=== PATIENT | male | born 1970 | race Caucasian/White ===

== ENCOUNTER → 2018-04-07 11:38 | Outpatient (CLI) | payer OTHER, SELFPAY ==
--- NOTE | 2018-04-07 11:42 | RAD_ITS ---
STUDY: X-RAY - PELVIS AND BILATERAL HIPS REASON FOR EXAM: Male, 47 years old. 2 week history of pain. No known injury. TECHNIQUE: Radiological exam, hip, bilateral, with pelvis when performed; 3-4 views COMPARISON: None. FINDINGS: There is a non-specific bowel gas pattern. Normal visualized soft tissue structures. Normal bilateral iliac wings, sacroiliac joints and visualized sacrum. Normal bilateral superior and inferior pubic rami. Normal pubic symphysis. Normal bilateral ischial tuberosities. Normal visualized right femoral head. Normal right acetabulum. Normal right hip joint. Normal visualized left femoral head. Normal left acetabulum. Normal left hip joint. RAD/Hips B/L min 2 views w/ Pelvis IMPRESSION: Normal x-ray examination of the pelvis and bilateral hips. Electronically Signed: Uriel Sung MD at 15:49 EDT Tel [phone], Service support ,
== END ==
PROVIDERS: Family Provider Family Medicine; PCP Family Medicine; Visit Provider Family Medicine
DX: M25.552 Pain in left hip (principal)
CPT/HCPCS: 73521

== ENCOUNTER → 2018-05-19 09:18 | Outpatient (CLI) | payer OTHER, SELFPAY | PROVIDERS: Family Provider Family Medicine; PCP Family Medicine | DX: M54.16 Radiculopathy, lumbar region (principal) | CPT/HCPCS: 72148 ==

== ENCOUNTER → 2019-03-31 | Outpatient (CLI) | payer OTHER, SELFPAY ==
[2019-03-31 17:30] LABS: Absolute Lymphocyte Count 2.09 X10^3/ul (0.83-4.51); Absolute Neutrophil Count 4.3 X10^3/uL (2.0-7.7); Basophil# 0.04 X10^3/uL; Basophil% 0.6 % (0-1); Eosinophil# 0.18 X10^3/uL; Eosinophils% 2.5 % (0-5); Hematocrit 44.5 % (40-54); Hemoglobin 15.5 g/dl (13.0-16.5); Lymphocyte # 2.09 X10^3/ul (4.0); Lymphocyte % 29.6 % (19-41); Mean Corp Hgb Conc 34.8 g/gl (32-36); Mean Corpuscular Hgb 29.2 pg (27.0-32.0); Mean Platelet Vol. 10.3 fl (6.2-12.0); Monocyte# 0.41 X10^3/uL; Monocyte% 5.8 % (0-10); Neutrophil # 4.33 X10^3/uL (2.7-7.7); Neutrophil % 61.4 % (47-70); Platelet Count 234 K/mm3 (150-450); RBC Distribution Width CV 12.8 % (11.6-14.6); RBC Distribution Width SD 39.2 fl (35.1-43.9); White Blood Count 7.1 K/mm3 (4.4-11.0)
[2019-03-31 17:35] LABS: POSITIVE COUNT NO; POSITIVE DIFFERENTIAL NO; POSITIVE MORPHOLOGY NO
[2019-03-31 18:17] LABS: ALB/GLOB Ratio 1.1 RATIO (0.9-2.4); AST(SGOT) 25 U/L (15-37); Alanine Aminotransfer ALT/SGPT 45 U/L (16-61); Albumin, Serum 4.1 g/dL (3.2-5.0); Alkaline Phosphatase 105 U/L (45-117); Anion Gap 12 (5-15); BUN 12 mg/dL (7-18); BUN/Creat Ratio 14.7 RATIO (10-20); Calcium,Total 8.8 mg/dL (8.5-10.1); Chloride 106 mmol/L (98-107); Cholesterol 177 mg/dL (200); Creatinine, Serum 0.82 mg/dL (0.70-1.30); EST Glomerular Filtration Rate 107 mL/min (>60); Est Glom Filt Rate - Afr Amer 129 mL/min (>60); Globulin 3.6 g/dL (2.2-4.2); Glucose 75 mg/dL (74-106); High Density Lipoprotein 35 mg/dL; Potassium 3.9 mmol/L (3.5-5.1); Protein, Total 7.7 g/dL (6.4-8.2); Sodium Level 143 mmol/L (136-145); Thyroid Stim Hormone (TSH) 1.94 uIU/mL (0.358-3.74); Triglycerides 322 mg/dL; Very Low Density Lipoprotein 64 mg/dL (5-40)
== END | disposition home or self-care (01) ==
LOC: MFPLAB 15:53
PROVIDERS: Family Provider Family Medicine; PCP Family Medicine; Referring Provider Family Medicine; Visit Provider Family Medicine
DX: E11.9 Type 2 diabetes mellitus without complications (principal); E66.9 Obesity, unspecified; E78.5 Hyperlipidemia, unspecified
CPT/HCPCS: 36415; 80053; 80061; 83036; 84443; 85025

== ENCOUNTER 2019-08-14 07:21 | Day surgery (SDC) | payer OTHER, SELFPAY ==
--- NOTE | 2019-07-13 03:08 | HP_ITS ---
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 Bulk System Required: No Is patient in pain?: No Allergies No Known Allergies Allergy (Unverified 07/13/19 14:41) Medications cholecalciferol (vitamin D3) 1,000 unit capsule 1,000 unit PO DAILY 07/13/19 [History Confirmed 07/13/19] ropinirole 1 mg tablet 1 mg PO QHS 07/13/19 [History Confirmed 07/13/19] rosuvastatin 10 mg tablet 10 mg PO DAILY 07/13/19 [History Confirmed 07/13/19] PFSH Medical History (Updated 07/13/19 @ 15:06 by Clifford Collins MD) Umbilical hernia, incarcerated (Acute) Screening for intestinal cancer (Acute) Back problem (Acute) Sleep apnea (Acute) Surgical History (Updated 07/13/19 @ 14:38 by Pepper Ma) Hx of hemorrhoidectomy (Acute) Hx of colonoscopy (Acute) Hx of arthroscopic knee surgery (Acute) Family History (Updated 07/13/19 @ 14:38 by Pepper Ma) Aunt Cancer brain cancer Social History (Updated 07/13/19 @ 15:18 by Clifford Collins MD) Smoking Status: Current every day smoker second hand exposure: Yes alcohol intake: never substance use type: marijuana caffeine: Yes what type of physical activity do you participate in: none frequency: does not exercise seatbelt use: always HPI HPI HPI: PAU GORE, is a 49 M who presents to the office today for HPI HPI Surgical H&P: Yes HPI: PAU GORE, is a 49 M who presents to the office today for surgical consultation regarding 2 particular findings. One is a 3-year history of a umbilical hernia. The other is age of 49 he has need for screening colonoscopy. 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 He does not do excessive lifting or straining. He has not had any abdominal surgery. Been no previous incisions at the umbilicus. He does not recall any specific trauma or injury. Over the past 3 years however he has noticed a nonreducible umbilical hernia. Infrequently as it tender. Never been erythematous. The patient does not smoke cigarettes but he does routinely smoke cigars. He states that it is very unlikely that he will be able to cease. He is previously had colonoscopy January 2011. At that time he then had a hemorrhoidectomy per . Pathology was consistent with benign hemorrhoidal tissue. At age 49 now he is referred for screening colonoscopy. He has not noticed any bright red blood per rectum or melena. As noted there is no family history of colon cancer. The patient is referred by Dr Vj Brown and a written compromise surgical consult recommendations will return to him regarding both the screening colonoscopy and umbilical hernia ROS General General: No weight change, appetite, fatigue, colon cancer, breast cancer or weakness HEENT HEENT: No difficulty swallowing, eye injury, eye surgery, swollen glands or hoarseness Endo Endocrine: No thyroid disease, diabetes mellitus, thyroid cancer, Hair loss, heat intolerance or cold intolerance Skin Skin: No rash or changing moles Musc Musculoskeletal: Yes back problems; no arthritis, rheumatoid arthritis, gout or joint pain Cardio Cardiovascular: No murmur, pacemaker, heart disease, atrial fibrillation, high blood pressure, heart attack, heart stent, palpitations, shortness of breat with exertion or chest pain Psych Psychiatric: No depression, anxiety or hearing voices Resp Respiratory: No shortness of breath, No sleep apnea, No cough, No COPD, No asthma, No emphysema, No wheezing Gastro Gastrointestinal: No abdominal pain, No nausea or vomiting, No diarrhea, No constipation, No blood in stool, No acid reflux, No hemorrhoids, No ulcers, No gallbladder problem, No black,tarry stools Mejia Hematologic: No blood thinners, No blood disorders, No bleeding, No anemia, No blood clots Neuro Neurologic: No system reviewed and no additional complaints, except as docu, No as per HPI, No abnormal walking, No abnormal hearing, No abnormal movements, No abnormal speech, No behavioral changes, No burning sensations, No confusion, No seizure-like activity, No unsteadiness, No dizziness, No localized weakness, No frequent falls, No headache(s), No lack of coordination, No loss of vision, No memory loss, No numbness, No other visual disturbances, No radiating pain, No restless legs, No sensory deficit, No fainting, No tingling, No tremor(s), No weakness, No other Exam Const General: cooperative, no acute distress Nutritional Appearance: obese Orientation: alert, awake, oriented x3 HENMT Head: normal to inspection Chest Chest palpation & inspection: normal inspection of the chest Resp Effort & Inspection: normal respiratory effort Auscultation: clear to auscultation bilaterally Cardio Rate: regular rate Rhythm: regular rhythm Heart Sounds: no murmurs Other: Carotids 3+ bilaterally no bruits GI Palpation: soft, no hepatosplenomegaly Auscultation: normal bowel sounds Other: Moderate sized umbilical hernia, fibrofatty tissue, only partially reducible, no erythema, notably overweight Skin General: no rashes or lesions noted Neuro General: alert, awake Extrem General: no calf tenderness bilaterally Psych Affect: normal affect Assessment & Plan Problems 1. Screening for intestinal cancer Z12.10 2. Umbilical hernia, incarcerated K42.0 Plan I recommended the patient a screening colonoscopy with possible biopsy or polypectomy as indicated. He is aware of the technique, benefits, risks, alternatives. We will schedule and proceed at his discretion. I do anticipate utilizing monitored anesthesia care. The patient does have an umbilical hernia which is only partially reducible. His body habitus currently is not ideal for repair. He suggests that he is quite unlikely to cease using cigars. I have recommended to him that he consider a 20 to 25 pound weight loss which would put him in a better situation to allow for the umbilical hernia repair. We did briefly discuss the utilization of mesh to assist with the repair. When he stands the vast majority of his abdominal pressure is on that umbilicus. Both the patient and his seem to understand the importance of his assistance and better maximizing himself as a surgical candidate. He does suggest that he thinks it is reasonable for him to attempt a weight loss program. He is to recontact me if the area becomes symptomatic or when he is able to achieve this at goal of weight loss. I very much appreciate the kind opportunity of assisting with his surgical care. CC: Dr Vj Collins M.D., F.A.C.S. Coding Level of Care Code 01750 Diagnoses Screening for intestinal cancer Z12.10 Umbilical hernia, incarcerated K42.0 07/13/19 1519 <Electronically signed by Clifford tellez MD> Date _ Clifford Collins MD
[2019-07-13 14:39] VITALS: BMI 35.2
[2019-08-14] VITALS (7 sets, daily range): BP systolic 110–124; BP diastolic 58–73; PULSE 76–86; RESP 16–18; TEMP 36.4–37.2; O2SAT 93–99; BMI 36.3
--- NOTE | 2019-08-14 05:56 | PCM.HP.BLA ---
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 Required: No Is patient in pain?: No Allergies No Known Allergies Allergy (Unverified 07/13/19 14:41) Medications cholecalciferol (vitamin D3) 1,000 unit capsule 1,000 unit PO DAILY 07/13/19 [History Confirmed 07/13/19] ropinirole 1 mg tablet 1 mg PO QHS 07/13/19 [History Confirmed 07/13/19] rosuvastatin 10 mg tablet 10 mg PO DAILY 07/13/19 [History Confirmed 07/13/19] PFSH Medical History (Updated 07/13/19 @ 15:06 by Clifford Collins MD) Umbilical hernia, incarcerated (Acute) Screening for intestinal cancer (Acute) Back problem (Acute) Sleep apnea (Acute) Surgical History (Updated 07/13/19 @ 14:38 by Pepper Ma) Hx of hemorrhoidectomy (Acute) Hx of colonoscopy (Acute) Hx of arthroscopic knee surgery (Acute) Family History (Updated 07/13/19 @ 14:38 by Pepper Ma) Aunt Cancer brain cancer Social History (Updated 07/13/19 @ 15:18 by Clifford Collins MD) Smoking Status: Current every day smoker second hand exposure: Yes alcohol intake: never substance use type: marijuana caffeine: Yes what type of physical activity do you participate in: none frequency: does not exercise seatbelt use: always HPI HPI HPI: PAU GORE, is a 49 M who presents to the office today for HPI HPI Surgical H&P: Yes HPI: PAU GORE, is a 49 M who presents to the office today for surgical consultation regarding 2 particular findings. One is a 3-year history of a umbilical hernia. The other is age of 49 he has need for screening colonoscopy. 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 He does not do excessive lifting or straining. He has not had any abdominal surgery. Been no previous incisions at the umbilicus. He does not recall any specific trauma or injury. Over the past 3 years however he has noticed a nonreducible umbilical hernia. Infrequently as it tender. Never been erythematous. The patient does not smoke cigarettes but he does routinely smoke cigars. He states that it is very unlikely that he will be able to cease. He is previously had colonoscopy January 2011. At that time he then had a hemorrhoidectomy per . Pathology was consistent with benign hemorrhoidal tissue. At age 49 now he is referred for screening colonoscopy. He has not noticed any bright red blood per rectum or melena. As noted there is no family history of colon cancer. The patient is referred by Dr Vj Brown and a written compromise surgical consult recommendations will return to him regarding both the screening colonoscopy and umbilical hernia ROS General General: No weight change, appetite, fatigue, colon cancer, breast cancer or weakness HEENT HEENT: No difficulty swallowing, eye injury, eye surgery, swollen glands or hoarseness Endo Endocrine: No thyroid disease, diabetes mellitus, thyroid cancer, Hair loss, heat intolerance or cold intolerance Skin Skin: No rash or changing moles Musc Musculoskeletal: Yes back problems; no arthritis, rheumatoid arthritis, gout or joint pain Cardio Cardiovascular: No murmur, pacemaker, heart disease, atrial fibrillation, high blood pressure, heart attack, heart stent, palpitations, shortness of breat with exertion or chest pain Psych Psychiatric: No depression, anxiety or hearing voices Resp Respiratory: No shortness of breath, No sleep apnea, No cough, No COPD, No asthma, No emphysema, No wheezing Gastro Gastrointestinal: No abdominal pain, No nausea or vomiting, No diarrhea, No constipation, No blood in stool, No acid reflux, No hemorrhoids, No ulcers, No gallbladder problem, No black,tarry stools Mejia Hematologic: No blood thinners, No blood disorders, No bleeding, No anemia, No blood clots Neuro Neurologic: No system reviewed and no additional complaints, except as docu, No as per HPI, No abnormal walking, No abnormal hearing, No abnormal movements, No abnormal speech, No behavioral changes, No burning sensations, No confusion, No seizure-like activity, No unsteadiness, No dizziness, No localized weakness, No frequent falls, No headache(s), No lack of coordination, No loss of vision, No memory loss, No numbness, No other visual disturbances, No radiating pain, No restless legs, No sensory deficit, No fainting, No tingling, No tremor(s), No weakness, No other Exam Const General: cooperative, no acute distress Nutritional Appearance: obese Orientation: alert, awake, oriented x3 HENMT Head: normal to inspection Chest Chest palpation & inspection: normal inspection of the chest Resp Effort & Inspection: normal respiratory effort Auscultation: clear to auscultation bilaterally Cardio Rate: regular rate Rhythm: regular rhythm Heart Sounds: no murmurs Other: Carotids 3+ bilaterally no bruits GI Palpation: soft, no hepatosplenomegaly Auscultation: normal bowel sounds Other: Moderate sized umbilical hernia, fibrofatty tissue, only partially reducible, no erythema, notably overweight Skin General: no rashes or lesions noted Neuro General: alert, awake Extrem General: no calf tenderness bilaterally Psych Affect: normal affect Assessment & Plan Problems 1. Screening for intestinal cancer Z12.10 2. Umbilical hernia, incarcerated K42.0 Plan I recommended the patient a screening colonoscopy with possible biopsy or polypectomy as indicated. He is aware of the technique, benefits, risks, alternatives. We will schedule and proceed at his discretion. I do anticipate utilizing monitored anesthesia care. The patient does have an umbilical hernia which is only partially reducible. His body habitus currently is not ideal for repair. He suggests that he is quite unlikely to cease using cigars. I have recommended to him that he consider a 20 to 25 pound weight loss which would put him in a better situation to allow for the umbilical hernia repair. We did briefly discuss the utilization of mesh to assist with the repair. When he stands the vast majority of his abdominal pressure is on that umbilicus. Both the patient and his seem to understand the importance of his assistance and better maximizing himself as a surgical candidate. He does suggest that he thinks it is reasonable for him to attempt a weight loss program. He is to recontact me if the area becomes symptomatic or when he is able to achieve this at goal of weight loss. I very much appreciate the kind opportunity of assisting with his surgical care. CC: Dr Vj Collins M.D., F.A.C.S. Coding Level of Care Code 86522 Diagnoses Screening for intestinal cancer Z12.10 Umbilical hernia, incarcerated K42.0 I have re-examined the patient. There are no clinical changes since date of exam.
--- NOTE | 2019-08-14 09:48 | OP.COLON_ITS ---
Patient Name: Ron Ospina Procedure Date: 08/14/2019 9:17 AM Date of : 1970 Age: 49 Procedure: Colonoscopy Indications: Screening for colorectal malignant neoplasm Providers: Clifford Collins MD Referring MD: Carlitos Nguyen MD Medicines: See the Anesthesia note for documentation of the administered medications Patient Profile: Last Colonoscopy: 2010. Complications: No immediate complications. Procedure: Pre-Anesthesia Assessment: - Prior to the procedure, a History and Physical was performed, and patient medications and allergies were reviewed. The patient's tolerance of previous anesthesia was also reviewed. The risks and benefits of the procedure and the sedation options and risks were discussed with the patient. All questions were answered, and informed consent was obtained. Prior Anticoagulants: The patient has taken no previous anticoagulant or antiplatelet agents. ASA Grade Assessment: II - A patient with mild systemic disease. After reviewing the risks and benefits, the patient was deemed in satisfactory condition to undergo the procedure. After I obtained informed consent, the scope was passed under direct vision. Throughout the procedure, the patient's blood pressure, pulse, and oxygen saturations were monitored continuously. The colonoscope was introduced through the anus and advanced to the cecum, identified by appendiceal orifice and ileocecal valve. The colonoscopy was performed without difficulty. The patient tolerated the procedure well. The quality of the bowel preparation was good. The ileocecal valve was photographed. Scope In: 9:26:24 AM Scope Withdrawal Time 0 hours 8 minutes 36 seconds Scope Out: 9:40:20 AM Total Procedure Duration Time 0 hours 13 minutes 56 seconds Findings: The digital rectal exam findings include non-thrombosed external hemorrhoids, non-thrombosed internal hemorrhoids and internal hemorrhoids that prolapse with straining, but require manual replacement into the anal canal (Grade III). Multiple diverticula were found in the sigmoid colon and descending colon. The exam was otherwise without abnormality. Impression: - Non-thrombosed external hemorrhoids, non-thrombosed internal hemorrhoids and internal hemorrhoids that prolapse with straining, but require manual replacement into the anal canal (Grade III) found on digital rectal exam. - Diverticulosis in the sigmoid colon and in the descending colon. - The examination was otherwise normal. - No specimens collected. Recommendation: - Discharge patient to home. - Resume previous diet. - Continue present medications. - Repeat colonoscopy in 10 years for screening purposes. Procedure Code(s): --- Professional --- 06985, Colonoscopy, flexible; diagnostic, including collection of specimen(s) by brushing or washing, when performed (separate procedure) Diagnosis Code(s): --- Professional --- Z12.11, Encounter for screening for malignant neoplasm of colon K64.2, Third degree hemorrhoids K64.4, Residual hemorrhoidal skin tags K57.30, Diverticulosis of large intestine without perforation or abscess without bleeding CPT copyright 2017 [employer]. All rights reserved. The codes documented in this report are preliminary and upon civil lawyer review may be revised to meet current compliance requirements. Clifford Collins MD 08/14/2019 9:48:32 AM This report has been signed electronically. Number of Addenda: 0 Note Initiated On: 08/14/2019 9:17 AM
[2019-08-14] MEDS: Lactated Ringers 1,000 ML 100 ML IV (09:49)
== END 2019-08-14 10:15 | disposition home or self-care (01) ==
LOC: EN 07:21 → AC 07:22
PROVIDERS: Family Provider Family Medicine; PCP Family Medicine; Referring Provider Family Medicine; Visit Provider Surgery
PROC: 0DJD8ZZ Inspection of Lower Intestinal Tract, Via Natural or Artificial Opening Endoscopic (ICD-10-PCS; CPT 45378; principal; 2019-08-14 08:25)
DX: Z12.11 Encounter for screening for malignant neoplasm of colon (principal); K64.2 Third degree hemorrhoids; K64.4 Residual hemorrhoidal skin tags; K57.30 Diverticulosis of large intestine without perforation or abscess without bleeding; G47.30 Sleep apnea, unspecified; K42.0 Umbilical hernia with obstruction, without gangrene; F17.290 Nicotine dependence, other tobacco product, uncomplicated
CPT/HCPCS: 45378; J7120; J2405

== ENCOUNTER → 2020-06-08 16:46 | Outpatient (CLI) | payer OTHER, SELFPAY ==
[2019-08-14 07:37] VITALS: BMI 36.3
[2020-06-08 19:01] LABS: Absolute Lymphocyte Count 2.15 X10^3/uL (0.83-4.51); Absolute Neutrophil Count 5.5 X10^3/uL (2.0-7.7); Basophil# 0.05 X10^3/uL; Basophil% 0.6 % (0-1); Eosinophil# 0.19 X10^3/uL; Eosinophils% 2.3 % (0-5); Hematocrit 45.1 % (40-54); Hemoglobin 15.3 g/dL (13.0-16.5); Lymphocyte # 2.15 X10^3/ul (4.0); Lymphocyte % 25.6 % (19-41); Mean Corp Hgb Conc 33.9 g/dL (32-36); Mean Corpuscular Hgb 29.9 pg (27.0-32.0); Mean Corpuscular Volume 88.3 fL (80-94); Mean Platelet Vol. 10.1 fl (6.2-12.0); Monocyte# 0.52 X10^3/uL; Monocyte% 6.2 % (0-10); NRBC Flagged by Analyzer 0 % (0-5); Neutrophil # 5.45 X10^3/uL (2.7-7.7); Neutrophil % 64.9 % (47-70); Platelet Count 239 K/mm3 (150-450); RBC Distribution Width CV 12.4 % (11.6-14.6); RBC Distribution Width SD 40.1 fl (35.1-43.9); Red Blood Count 5.11 M/mm3 (4.6-6.2); White Blood Count 8.4 K/mm3 (4.4-11.0)
[2020-06-08 19:34] LABS: AST(SGOT) 57 U/L (15-37); Alanine Aminotransfer ALT/SGPT 62 U/L (16-61); Albumin, Serum 3.9 g/dL (3.2-5.0); Alkaline Phosphatase 110 U/L (45-117); Anion Gap 7 (5-15); BUN 12 mg/dL (7-18); BUN/Creat Ratio 13.3 RATIO (10-20); Calcium,Total 8.8 mg/dL (8.5-10.1); Chloride 108 mmol/L (98-107); Cholesterol 186 mg/dL (200); EST Glomerular Filtration Rate 94 mL/min (>60); Est Glom Filt Rate - Afr Amer 114 mL/min (>60); Globulin 3.9 g/dL (2.2-4.2); Glucose 82 mg/dL (74-106); High Density Lipoprotein 28 mg/dL; Potassium 3.5 mmol/L (3.5-5.1); Protein, Total 7.8 g/dL (6.4-8.2); Sodium Level 140 mmol/L (136-145); Triglycerides 306 mg/dL; Very Low Density Lipoprotein 61 mg/dL (5-40)
[2020-06-08 19:42] LABS: Hemoglobin A1c 6.2 % (3.8-5.6)
== END ==
PROVIDERS: PCP Family Medicine; Referring Provider Family Medicine; Visit Provider Family Medicine
DX: E78.5 Hyperlipidemia, unspecified (principal); R73.02 Impaired glucose tolerance (oral); E66.9 Obesity, unspecified
CPT/HCPCS: 36415; 80053; 80061; 83036; 85025

== ENCOUNTER → 2020-11-15 15:36 | Outpatient (CLI) | payer OTHER, SELFPAY ==
[2019-08-14 07:37] VITALS: BMI 36.3
[2020-11-15 17:54] LABS: AST(SGOT) 32 U/L (15-37); Alanine Aminotransfer ALT/SGPT 55 U/L (16-61); Albumin, Serum 3.8 g/dL (3.2-5.0); Alkaline Phosphatase 121 U/L (45-117); Anion Gap 6 (5-15); BUN 14 mg/dL (7-18); Calcium,Total 8.9 mg/dL (8.5-10.1); Chloride 106 mmol/L (98-107); Cholesterol 195 mg/dL (200); Creatinine, Serum 0.93 mg/dL (0.70-1.30); EST Glomerular Filtration Rate 91 mL/min (>60); Est Glom Filt Rate - Afr Amer 109 mL/min (>60); Globulin 3.9 g/dL (2.2-4.2); Glucose 96 mg/dL (74-106); High Density Lipoprotein 33 mg/dL; Potassium 3.4 mmol/L (3.5-5.1); Protein, Total 7.7 g/dL (6.4-8.2); Sodium Level 138 mmol/L (136-145); Triglycerides 342 mg/dL; Very Low Density Lipoprotein 68 mg/dL (5-40)
== END ==
PROVIDERS: PCP Family Medicine; Referring Provider Family Medicine; Visit Provider Family Medicine
DX: E78.5 Hyperlipidemia, unspecified (principal); R73.02 Impaired glucose tolerance (oral)
CPT/HCPCS: 36415; 80053; 80061; 83036

== ENCOUNTER → 2021-05-24 16:05 | Outpatient (CLI) | payer OTHER, SELFPAY ==
[2021-05-24 18:04] LABS: Hemoglobin A1c 6.1 % (3.8-5.6)
[2021-05-24 18:07] LABS: ALB/GLOB Ratio 1.1 RATIO (0.9-2.4); AST(SGOT) 46 U/L (15-37); Alanine Aminotransfer ALT/SGPT 71 U/L (16-61); Albumin, Serum 4.1 g/dL (3.2-5.0); Alkaline Phosphatase 124 U/L (45-117); Anion Gap 6 (5-15); BUN 8 mg/dL (7-18); BUN/Creat Ratio 9.2 RATIO (10-20); Calcium,Total 8.9 mg/dL (8.5-10.1); Chloride 108 mmol/L (98-107); Cholesterol 186 mg/dL (200); Creatinine, Serum 0.87 mg/dL (0.70-1.30); EST Glomerular Filtration Rate 98 mL/min (>60); Est Glom Filt Rate - Afr Amer 119 mL/min (>60); Globulin 3.7 g/dL (2.2-4.2); Glucose 92 mg/dL (74-106); High Density Lipoprotein 31 mg/dL; Potassium 3.8 mmol/L (3.5-5.1); Protein, Total 7.8 g/dL (6.4-8.2); Sodium Level 139 mmol/L (136-145); Triglycerides 268 mg/dL; Very Low Density Lipoprotein 54 mg/dL (5-40)
== END ==
PROVIDERS: PCP Family Medicine; Referring Provider Family Medicine; Visit Provider Family Medicine
DX: E78.5 Hyperlipidemia, unspecified (principal); R73.02 Impaired glucose tolerance (oral)
CPT/HCPCS: 36415; 80053; 80061; 83036

== ENCOUNTER → 2021-09-11 | Outpatient (CLI) | payer OTHER, SELFPAY | END | disposition home or self-care (01) | PROVIDERS: PCP Family Medicine; Visit Provider Family Medicine | DX: Z20.822 Contact with and (suspected) exposure to COVID-19 (principal) | CPT/HCPCS: 87635; U0005; U0003 ==

== ENCOUNTER 2021-09-13 13:17 | Outpatient (CLI) | payer OTHER, SELFPAY ==
[2021-09-13 13:28] VITALS: BP 138/69; PULSE 71; RESP 16; TEMP 37; O2SAT 98; BMI 33.5
[2021-09-13] MEDS: 0.9% Saline Lock 10 ML Syringe IV (13:56)
[2021-09-13 14:33] VITALS: BP 133/70; PULSE 65; RESP 16; TEMP 36.7; O2SAT 96
[2021-09-13 15:23] VITALS: BP 123/75; PULSE 69; RESP 16; TEMP 36.9; O2SAT 98
== END 2021-09-13 15:26 | disposition home or self-care (01) ==
LOC: MS3OUT 13:17 → MS3 13:18
PROVIDERS: PCP Family Medicine; Referring Provider Nurse Practitioner Adult Health; Visit Provider Nurse Practitioner Adult Health
DX: Z23 Encounter for immunization (principal); U07.1 COVID-19; E11.9 Type 2 diabetes mellitus without complications
CPT/HCPCS: J7050; M0245; Q0245; A4216

== ENCOUNTER 2021-11-15 08:33 | Outpatient (CLI) | payer OTHER, SELFPAY ==
[2021-11-15 10:31] LABS: Absolute Lymphocyte Count 1.84 X10^3/uL (0.83-4.51); Absolute Neutrophil Count 4.1 X10^3/uL (2.0-7.7); Basophil# 0.05 X10^3/uL; Basophil% 0.8 % (0-1); Eosinophil# 0.19 X10^3/uL; Eosinophils% 2.9 % (0-5); Hematocrit 43.7 % (40-54); Hemoglobin 14.9 g/dL (13.0-16.5); Lymphocyte # 1.84 X10^3/ul (0.83-4.51); Lymphocyte % 28.1 % (19-41); Mean Corp Hgb Conc 34.1 g/dL (32-36); Mean Corpuscular Hgb 29.7 pg (27.0-32.0); Mean Corpuscular Volume 87.1 fL (80-94); Mean Platelet Vol. 10.5 fl (6.2-12.0); Monocyte# 0.34 X10^3/uL; Monocyte% 5.2 % (0-10); NRBC Flagged by Analyzer 0 % (0-5); Neutrophil # 4.11 X10^3/uL (2.7-7.7); Neutrophil % 62.7 % (47-70); Platelet Count 223 K/mm3 (150-450); RBC Distribution Width CV 12.3 % (11.6-14.6); RBC Distribution Width SD 39.4 fl (35.1-43.9); Red Blood Count 5.02 M/mm3 (4.6-6.2); White Blood Count 6.6 K/mm3 (4.4-11.0)
[2021-11-15 10:47] LABS: Hemoglobin A1c 5.3 % (3.8-5.6)
[2021-11-15 11:02] LABS: ALB/GLOB Ratio 1.1 RATIO (0.9-2.4); AST(SGOT) 18 U/L (15-37); Alanine Aminotransfer ALT/SGPT 32 U/L (16-61); Alkaline Phosphatase 93 U/L (45-117); Anion Gap 8 (5-15); BUN 13 mg/dL (7-18); BUN/Creat Ratio 16.2 RATIO (10-20); Calcium,Total 9.1 mg/dL (8.5-10.1); Chloride 108 mmol/L (98-107); Cholesterol 151 mg/dL (200); EST Glomerular Filtration Rate 108 mL/min (>60); Est Glom Filt Rate - Afr Amer 130 mL/min (>60); Globulin 3.8 g/dL (2.2-4.2); Glucose 93 mg/dL (74-106); High Density Lipoprotein 35 mg/dL; Potassium 4.3 mmol/L (3.5-5.1); Protein, Total 7.8 g/dL (6.4-8.2); Sodium Level 140 mmol/L (136-145); Triglycerides 155 mg/dL; Very Low Density Lipoprotein 31 mg/dL (5-40)
== END 2021-11-15 23:59 | disposition home or self-care (01) ==
LOC: MFPLAB 08:40
PROVIDERS: PCP Family Medicine; Referring Provider Family Medicine; Visit Provider Family Medicine
DX: E78.5 Hyperlipidemia, unspecified (principal); R73.02 Impaired glucose tolerance (oral)
CPT/HCPCS: 36415; 80053; 80061; 83036; 85025

== ENCOUNTER → 2023-06-07 | Outpatient (CLI) | payer OTHER, SELFPAY ==
[2023-06-07 17:37] LABS: Absolute Lymphocyte Count 1.63 X10^3/uL (0.83-4.51); Absolute Neutrophil Count 4.3 X10^3/uL (2.0-7.7); Basophil# 0.04 X10^3/uL; Basophil% 0.6 % (0-1); Eosinophil# 0.14 X10^3/uL; Eosinophils% 2.2 % (0-5); Hematocrit 44.7 % (40-54); Hemoglobin 15.2 g/dL (13.0-16.5); Lymphocyte # 1.63 X10^3/ul (0.83-4.51); Lymphocyte % 25.3 % (19-41); Mean Corpuscular Hgb 30.3 pg (27.0-32.0); Mean Platelet Vol. 10.4 fl (6.2-12.0); Monocyte% 4.7 % (0-10); NRBC Flagged by Analyzer 0 % (0-5); Neutrophil # 4.31 X10^3/uL (2.7-7.7); Platelet Count 222 K/mm3 (150-450); RBC Distribution Width CV 11.9 % (11.6-14.6); RBC Distribution Width SD 38.4 fl (35.1-43.9); Red Blood Count 5.02 M/mm3 (4.6-6.2); White Blood Count 6.4 K/mm3 (4.4-11.0)
[2023-06-07 18:14] LABS: ALB/GLOB Ratio 1.1 RATIO (0.9-2.4); AST(SGOT) 36 U/L (15-37); Alanine Aminotransfer ALT/SGPT 54 U/L (16-61); Alkaline Phosphatase 85 U/L (45-117); Anion Gap 7 (5-15); BUN 10 mg/dL (7-18); BUN/Creat Ratio 12.1 RATIO (10-20); Calcium,Total 8.7 mg/dL (8.5-10.1); Chloride 110 mmol/L (98-107); Cholesterol 167 mg/dL (200); Creatinine, Serum 0.82 mg/dL (0.70-1.30); EST Glomerular Filtration Rate 104 mL/min (>60); Est Glom Filt Rate - Afr Amer 125 mL/min (>60); Globulin 3.6 g/dL (2.2-4.2); Glucose 108 mg/dL (74-106); High Density Lipoprotein 41 mg/dL; Potassium 3.6 mmol/L (3.5-5.1); Protein, Total 7.6 g/dL (6.4-8.2); Sodium Level 140 mmol/L (136-145); Triglycerides 320 mg/dL; Very Low Density Lipoprotein 64 mg/dL (5-40)
[2023-06-07 18:32] LABS: Hemoglobin A1c 5.6 % (3.8-5.6)
== END | disposition home or self-care (01) ==
LOC: MFPLAB 15:31
PROVIDERS: PCP Family Medicine; Visit Provider Family Medicine
DX: E78.5 Hyperlipidemia, unspecified (principal); Z12.5 Encounter for screening for malignant neoplasm of prostate; R73.02 Impaired glucose tolerance (oral)
CPT/HCPCS: 36415; 80053; 80061; 83036; 84153; 85025; G0103

== ENCOUNTER → 2024-06-02 | Outpatient (CLI) | payer OTHER, SELFPAY ==
[2024-06-02 15:52] LABS: AST(SGOT) 35 U/L (15-37); Alanine Aminotransfer ALT/SGPT 60 U/L (16-61); Albumin, Serum 3.7 g/dL (3.2-5.0); Alkaline Phosphatase 106 U/L (45-117); Anion Gap 7 (5-15); BUN 10 mg/dL (7-18); BUN/Creat Ratio 14.7 RATIO (10-20); Calcium,Total 9.5 mg/dL (8.5-10.1); Chloride 107 mmol/L (98-107); Cholesterol 179 mg/dL (200); Creatinine, Serum 0.68 mg/dL (0.70-1.30); EST Glomerular Filtration Rate 129 mL/min (>60); Est Glom Filt Rate - Afr Amer 156 mL/min (>60); Globulin 3.7 g/dL (2.2-4.2); Glucose 101 mg/dL (74-106); High Density Lipoprotein 35 mg/dL; Potassium 3.8 mmol/L (3.5-5.1); Protein, Total 7.4 g/dL (6.4-8.2); Sodium Level 139 mmol/L (136-145); Triglycerides 200 mg/dL; Very Low Density Lipoprotein 40 mg/dL (5-40); Vitamin D,25 Hydroxy 25.3 ng/mL
[2024-06-02 15:54] LABS: Hemoglobin A1c 6.1 % (3.8-5.6)
[2024-06-02 15:58] LABS: Absolute Lymphocyte Count 1.67 X10^3/uL (0.83-4.51); Absolute Neutrophil Count 4.2 X10^3/uL (2.0-7.7); Basophil# 0.05 X10^3/uL; Basophil% 0.8 % (0-1); Eosinophil# 0.19 X10^3/uL; Eosinophils% 2.9 % (0-5); Hematocrit 45.1 % (40-54); Lymphocyte # 1.67 X10^3/ul (0.83-4.51); Lymphocyte % 25.3 % (19-41); Mean Corp Hgb Conc 33.3 g/dL (32-36); Mean Corpuscular Hgb 29.6 pg (27.0-32.0); Mean Corpuscular Volume 89.1 fL (80-94); Mean Platelet Vol. 10.9 fl (6.2-12.0); Monocyte# 0.45 X10^3/uL; Monocyte% 6.8 % (0-10); NRBC Flagged by Analyzer 0 % (0-5); Neutrophil # 4.21 X10^3/uL (2.7-7.7); Neutrophil % 63.9 % (47-70); Platelet Count 203 K/mm3 (150-450); RBC Distribution Width CV 12.3 % (11.6-14.6); RBC Distribution Width SD 40.3 fl (35.1-43.9); Red Blood Count 5.06 M/mm3 (4.6-6.2); White Blood Count 6.6 K/mm3 (4.4-11.0)
== END | disposition home or self-care (01) ==
LOC: MFPLAB 11:50
PROVIDERS: PCP Family Medicine; Visit Provider Family Medicine
DX: E78.5 Hyperlipidemia, unspecified (principal); E55.9 Vitamin D deficiency, unspecified; R73.02 Impaired glucose tolerance (oral)
CPT/HCPCS: 36415; 80053; 80061; 82306; 83036; 85025

== ENCOUNTER → 2025-01-01 | Outpatient (CLI) | payer OTHER, SELFPAY ==
[2025-01-01 17:51] LABS: Absolute Lymphocyte Count 2.44 X10^3/uL (0.83-4.51); Absolute Neutrophil Count 5.3 X10^3/uL (2.0-7.7); Basophil# 0.03 X10^3/uL; Basophil% 0.4 % (0-1); Eosinophil# 0.17 X10^3/uL; Hematocrit 43.5 % (40-54); Hemoglobin 15.3 g/dL (13.0-16.5); Lymphocyte # 2.44 X10^3/ul (0.83-4.51); Lymphocyte % 29.1 % (19-41); Mean Corp Hgb Conc 35.2 g/dL (32-36); Mean Corpuscular Hgb 30.5 pg (27.0-32.0); Mean Corpuscular Volume 86.7 fL (80-94); Mean Platelet Vol. 10.1 fl (6.2-12.0); Monocyte# 0.44 X10^3/uL; Monocyte% 5.3 % (0-10); NRBC Flagged by Analyzer 0 % (0-5); Neutrophil # 5.28 X10^3/uL (2.7-7.7); Platelet Count 235 K/mm3 (150-450); RBC Distribution Width CV 12.4 % (11.6-14.6); Red Blood Count 5.02 M/mm3 (4.6-6.2); White Blood Count 8.4 K/mm3 (4.4-11.0)
[2025-01-01 19:22] LABS: ALB/GLOB Ratio 1.5 RATIO (0.9-2.4); AST(SGOT) 37 U/L (<=37); Alanine Aminotransfer ALT/SGPT 40 U/L (<=46); Albumin, Serum 4.6 g/dL (3.5-5.0); Alkaline Phosphatase 97 U/L (40-129); Anion Gap 15 (5-15); BUN 12 mg/dL (4-19); BUN/Creat Ratio 16.1 RATIO (10-20); Calcium,Total 9.6 mg/dL (7.6-11.0); Carbon Dioxide 19.3 mmol/L (21.0-32.0); Chloride 105 mmol/L (98-108); Cholesterol 178 mg/dL (<=200); Creatinine, Serum 0.76 mg/dL (0.70-1.20); EST Glomerular Filtration Rate 106 (>60); Globulin 3.1 g/dL (2.2-4.2); Glucose 87 mg/dL (70-99); High Density Lipoprotein 39 mg/dL; Low Density Lipoprotein Calc. 102 mg/dL; Potassium 3.9 mmol/L (3.3-5.1); Protein, Total 7.7 g/dL (5.9-8.4); Sodium Level 140 mmol/L (133-145); Total Bilirubin 0.51 mg/dL (0.00-1.30); Triglycerides 187 mg/dL; Very Low Density Lipoprotein 37 mg/dL (5-40); cholesterol:hdl ratio screen 4.59
[2025-01-01 19:23] LABS: Vitamin D,25 Hydroxy 29.1 ng/mL (30-100)
== END | disposition home or self-care (01) ==
LOC: MFPLAB 16:10
PROVIDERS: PCP Family Medicine; Referring Provider Family Medicine; Visit Provider Family Medicine
DX: E78.5 Hyperlipidemia, unspecified (principal); R73.02 Impaired glucose tolerance (oral)
CPT/HCPCS: 36415; 80053; 80061; 82306; 83036; 85025

== ENCOUNTER → 2025-07-29 | Outpatient (CLI) | payer OTHER, SELFPAY ==
[2025-07-29 12:14] LABS: Hematocrit 44.1 % (40-54); Hemoglobin 15.6 g/dL (13.0-16.5); Immature Granulocytes Count 0.010 X10^3/uL (0.0-0.0); Mean Corp Hgb Conc 35.4 g/dL (32-36); Mean Corpuscular Volume 86.1 fL (80-94); Mean Platelet Vol. 10.0 fl (6.2-12.0); NRBC Flagged by Analyzer 0 % (0-5); Platelet Count 228 K/mm3 (150-450); RBC Distribution Width CV 11.9 % (11.6-14.6); RBC Distribution Width SD 37.5 fl (35.1-43.9); Red Blood Count 5.12 M/mm3 (4.6-6.2); White Blood Count 6.4 K/mm3 (4.4-11.0)
[2025-07-29 13:19] LABS: AST(SGOT) 42 U/L (<=37); Alanine Aminotransfer ALT/SGPT 48 U/L (<=46); Albumin, Serum 4.6 g/dL (3.5-5.0); Alkaline Phosphatase 100 U/L (40-129); Anion Gap 13 (5-15); BUN 11 mg/dL (4-19); BUN/Creat Ratio 15.2 RATIO (10-20); Calcium,Total 9.4 mg/dL (7.6-11.0); Carbon Dioxide 22.2 mmol/L (21.0-32.0); Chloride 107 mmol/L (98-108); Cholesterol 147 mg/dL (<=200); Globulin 3.2 g/dL (2.2-4.2); Glucose 113 mg/dL (70-99); Low Density Lipoprotein Calc. 86 mg/dL; PSA,Total - Annual Screen 0.68 ng/mL (0.02-4.00); Potassium 3.8 mmol/L (3.3-5.1); Triglycerides 151 mg/dL; Very Low Density Lipoprotein 30 mg/dL (5-40); Vitamin D,25 Hydroxy 29.4 ng/mL (30-100); cholesterol:hdl ratio screen 4.32
== END | disposition home or self-care (01) ==
LOC: MFPLAB 10:35
PROVIDERS: PCP Family Medicine; Visit Provider Family Medicine
DX: Z12.5 Encounter for screening for malignant neoplasm of prostate (principal); R73.02 Impaired glucose tolerance (oral); E55.9 Vitamin D deficiency, unspecified
CPT/HCPCS: 36415; 80053; 80061; 82306; 83036; 84153; 85025; G0103